=== PATIENT | male | born 1950 | race Caucasian/White ===

== ENCOUNTER → 2018-03-13 | Outpatient (CLI) | payer BC, MEDICARE ==
--- NOTE | 2018-03-13 13:55 | XR ---
EXAMINATION TYPE: XR chest 2V DATE OF EXAM: 03/13/2018 COMPARISON: NONE HISTORY: Follow-up for pneumonia. TECHNIQUE: Frontal and lateral views of the chest are obtained. FINDINGS: Right basilar opacity appears linear oriented and likely relates to atelectasis. Additiona lly there is secondary signs of volume loss as there is right hemidiaphragm elevation again likely fr om atelectasis. Left hemithorax is well aerated. The cardiac silhouette is upper limits of normal. IMPRESSION: Linear right basilar opacity with volume loss of the right hemithorax favored to represe nt atelectasis.
== END | disposition home or self-care (01) ==
LOC: RADXRMAIN 13:22
PROVIDERS: ATTEND Family Medicine
DX: R91.8 Other nonspecific abnormal finding of lung field (principal)
CPT/HCPCS: 71046

== ENCOUNTER 2022-04-19 14:15 | Inpatient (IN) | payer MEDICARE ==
[2022-04-19] MEDS ORDERED: NITROGLYCERIN SL TABS 0.4 MG TAB SUBLINGUAL STA ×3 (15:09→16:37)
[2022-04-19] MEDS ORDERED: ASPIRIN 81 MG PO STA (15:09)
--- NOTE | 2022-04-19 15:14 | ED ---
Chest Pain HPI - General Source: patient, RN notes reviewed Mode of arrival: wheelchair Limitations: no limitations - History of Present Illness MD Complaint: chest pain <Samir Lizama - Last Filed: 04/19/22 16:01> <Jhoan Douglas - Last Filed: 04/19/22 17:09> - General Chief Complaint: Chest Pain Stated Complaint: Chest Pain Time Seen by Provider: 04/19/22 14:26 - History of Present Illness Initial Comments: 71-year-old male with a history of hypertension also history of vein stripping but no prior history of cardiac disease other is a family history and his mother's side who presents with complains of sternal nonradiating chest pain started around 9:00 last evening. His been intermittent anywhere from 4/10-0. He currently states is about 4/10. No shortness breath fevers chills nausea vomiting sweats with it no reproducibility. He points to the left to midsternal chest he states is about the size was fist he does state is dull in nature. No other current complaints or modifying factors patient is a nonsmoker. (Samir Lizama) - Related Data Home Medications Medication Instructions Recorded Confirmed Tamsulosin HCl [Flomax] 0.4 mg PO HS 04/19/22 04/19/22 amLODIPine [Norvasc] 5 mg PO DAILY 04/19/22 04/19/22 hydroCHLOROthiazide [Hydrodiuril] 25 mg PO DAILY 04/19/22 04/19/22 Allergies Allergy/AdvReac Type Severity Reaction Status Date / Time No Known Allergies Allergy Verified 04/19/22 15:26 Review of Systems ROS Other: All systems not noted in ROS Statement are negative. <Samir Lizama - Last Filed: 04/19/22 16:01> ROS Other: All systems not noted in ROS Statement are negative. <Jhoan Douglas - Last Filed: 04/19/22 17:09> ROS Statement: Those systems with pertinent positive or pertinent negative responses have been documented in the HPI. EKG Findings - EKG Results: EKG: interpreted by ERMD, sinus rhythm (EKG read by me sinus rhythm first-degree AV block rate of 78 OH interval 244 QRS duration 169 QT since QTC 423/456 evidence a left exodeviation left bundle-branch block pattern currently no old one for evaluation and comparison.) <Samir Lizama - Last Filed: 04/19/22 16:01> Past Medical History Past Medical History: Hypertension History of Any Multi-Drug Resistant Organisms: None Reported Additional Past Surgical History / Comment(s): VARICOSE VEIN STRIPPING Past Psychological History: No Psychological Hx Reported Smoking Status: Never smoker Past Alcohol Use History: None Reported Past Drug Use History: None Reported <Samir Lizama - Last Filed: 04/19/22 16:01> General Exam Limitations: no limitations General appearance: alert, in no apparent distress Head exam: Present: atraumatic, normocephalic, normal inspection Eye exam: Present: normal appearance, PERRL, EOMI. Absent: scleral icterus, conjunctival injection, periorbital swelling ENT exam: Present: normal exam, mucous membranes moist Neck exam: Present: normal inspection, full ROM, other. Absent: tenderness, meningismus, lymphadenopathy Respiratory exam: Present: normal lung sounds bilaterally. Absent: respiratory distress, wheezes, rales, rhonchi, stridor, chest wall tenderness (Genitourinary bruits) Cardiovascular Exam: Present: regular rate, normal rhythm, normal heart sounds. Absent: systolic murmur, diastolic murmur, rubs, gallop, clicks GI/Abdominal exam: Present: soft, normal bowel sounds. Absent: distended, tenderness, guarding, rebound, rigid Extremities exam: Present: normal inspection, full ROM, normal capillary refill. Absent: tenderness, pedal edema, joint swelling, calf tenderness Back exam: Present: normal inspection Neurological exam: Present: alert, oriented X3, CN II-XII intact Psychiatric exam: Present: normal affect, normal mood Skin exam: Present: warm, dry, intact, normal color. Absent: rash <Samir Lizama - Last Filed: 04/19/22 16:01> - General Exam Comments Initial Comments: This is a well-developed well-nourished awake alert oriented 4 male (Samir Lizama) Course <Samir Lizama - Last Filed: 04/19/22 16:01> Vital Signs 04/19/22 04/19/22 04/19/22 14:36 14:45 15:38 Temperature 97.7 F Pulse Rate 84 94 Pulse Rate [ 84 Acid Mixer ] Respiratory 20 20 Rate Blood Pressure 141/87 133/88 O2 Sat by Pulse 92 L 93 L Oximetry 04/19/22 16:40 Temperature Pulse Rate 80 Pulse Rate [ Acid Mixer ] Respiratory 20 Rate Blood Pressure 130/98 O2 Sat by Pulse 95 Oximetry - Reevaluation(s) Reevaluation #1: 04/19/22 15:30 I did review the EKG it was sent from the primary physician office dated 04/07/22 showing similar configuration to today's EKG (Samir Lizama) Reevaluation #2: 04/19/22 16:01 Reevaluation patient after taking the medication shows no overt change. He still has chest discomfort in the same spot he points again to the left mid to lower costal sternal margin. Patient's d-dimer however is elevated and CT angiogram has been ordered. The patient's care will be endorsed to Dr. Douglas at our shift change. (Samir Lizama) Chest Pain MDM <Jhoan Douglas - Last Filed: 04/19/22 17:09> - [facility] Patient is a 71-year-old male with past medical history remarkable for hypertension who presents emergency Department complaining of chest pain. Patient was signed out to me pending results of laboratory studies and imaging. Patient was already given aspirin, nitroglycerin tablets which did improve his pain as it is resolved at this time when I discuss his workup with him. Patient's d-dimer was elevated and CT angiogram was ordered. Patient does have an elevated troponin as well as 0.2. EKG was evaluated by the prior physician as well as myself and revealed a left bundle branch block which appears chronic. Using scarbossa's criteria, no evidence for significant ST segment findings to suggest MT. An EKG that he obtained from the patient's PCPs office. That EKG is located on the patient's chart. Patient is currently resting comfortably in bed. He was in agreement with the overall plan. Vital signs within acceptable limits. Patient's CT angiogram is interpreted by myself revealed no evidence of pulmonary embolism. Patient does have left-sided 2 pulmonary nodules which I informed him about. No other findings. Bibasal atelectasis present. After the patient. He remains pain-free. He will be started on Nitropaste, as well as a low intensity heparin drip. He was in agreement with this plan. We discussed that I'm concerned for ACS for him and he appears to be have an NSTEMI. He is symptomaticly free at this time. He was in agreement this plan. He already received 324 mg of aspirin. Cardiology was consulted. Echo was ordered. We will trend his troponin. I spoke with the admitting team, mid-level provider Tulio of [facility] who admits for Dr. Khoury who accepted the patient. He was admitted to telemetry bed. (Jhoan Douglas) Disposition <Samir Lizama - Last Filed: 04/19/22 16:01> Time of Disposition: 16:40 <Jhoan Douglas - Last Filed: 04/19/22 17:09> Clinical Impression: Acute non-ST elevation myocardial infarction (NSTEMI), Chest pain, Elevated troponin, History of left bundle branch block, Pulmonary nodule Disposition: ADMITTED IP TO THIS HOSP Condition: Stable Referrals: Slade Khoury MD [Primary Care Provider] - 1-2 days
--- NOTE | 2022-04-19 15:27 | XR ---
EXAMINATION TYPE: XR chest 2V DATE OF EXAM: 04/19/2022 COMPARISON: 03/13/2018 HISTORY: 71-year-old male with chest pain TECHNIQUE: PA and lateral views FINDINGS: Heart borderline enlarged. Rightward patient rotation alters the normal cardia mediastinal contours. Patchy medial left basilar and right basilar opacities. Similar bandlike configuration to the right b ase opacity. Upper lungs appear clear. No pleural effusion. IMPRESSION: 1. Borderline heart size. 2. Chronic bandlike density at the right base, suspected scar. 3. Some patchy atelectasis or developing infiltrate medial left base. Clinically correlate.
[2022-04-19 15:28] LABS: Basophils # (A) 0.1 k/uL (0-0.2); Basophils % (A) 1 %; Eosinophils # (A) 0.8 k/uL (0-0.7); Eosinophils % (A) 8 %; HCT 46.2 % (39.0-53.0); HGB 15.9 gm/dL (13.0-17.5); Lymphocytes # (A) 1.5 k/uL (1.0-4.8); Lymphocytes % (A) 16 %; MCHC 34.5 g/dL (31.0-37.0); MCV 92.7 fL (80.0-100.0); Mean Platelet Volume 9.2; Monocytes # (A) 0.5 k/uL (0-1.0); Monocytes % (A) 5 %; Neutrophils # (A) 6.4 k/uL (1.3-7.7); Neutrophils % (A) 68 %; Platelet Count 183 k/uL (150-450); RBC 4.98 m/uL (4.30-5.90); WBC 9.4 k/uL (3.8-10.6)
[2022-04-19 15:48] LABS: ALT 50 U/L (4-49); AST 49 U/L (17-59); African American GFR (CKD) >90 (>60 ml/min/1.73 sqM); Albumin 4.4 g/dL (3.5-5.0); Alkaline Phosphatase 62 U/L (38-126); Anion Gap 7 mmol/L; Blood Urea Nitrogen 15 mg/dL (9-20); Calcium 9.2 mg/dL (8.4-10.2); Carbon Dioxide 27 mmol/L (22-30); Chloride 105 mmol/L (98-107); Glucose 133 mg/dL (74-99); Lipase 44 U/L (23-300); Non-African American GFR(CKD) >90 (>60 ml/min/1.73 sqM); Potassium 4.2 mmol/L (3.5-5.1); Sodium 139 mmol/L (137-145); Total Bilirubin 1.1 mg/dL (0.2-1.3); Total Protein 7.1 g/dL (6.3-8.2)
[2022-04-19 15:49] LABS: Partial Thromboplastin Time 23.6 sec (22.0-30.0); Prothrombin Time 11.3 sec (9.0-12.0)
[2022-04-19] MEDS ORDERED: HEPARIN SODIUM 1,000 UN/ML (10ML VL) IV ONE ×2 (16:13→16:41)
[2022-04-19] MEDS ORDERED: HEPARIN SODIUM 1,000 UN/ML (10ML VL) IV PRN (16:13)
[2022-04-19] MEDS ORDERED: HEPARIN SOD,PORK IN 0.45% NACL 25,000 UNIT in 0.45% NACL 1 250ML.BAG IV SCH ×2 (16:15→16:45)
--- NOTE | 2022-04-19 16:37 | CT ---
EXAMINATION TYPE: CT angio chest CT DLP: 916.8 mGycm, Automated exposure control for dose reduction was used. DATE OF EXAM: 04/19/2022 4:29 PM COMPARISON: Chest radiograph from same day. CLINICAL INDICATION:Male, 71 years old with history of PE suspected; c/o chest pain TECHNIQUE/CONTRAST: CTA scan of the thorax is performed with IV Contrast, patient injected with 80cc mL of Isovue 370, pu lmonary embolism protocol. MIP images are created and reviewed. FINDINGS: Pulmonary Artery: There is no evidence for a filling defect within the pulmonary vasculature to sugge st acute pulmonary embolism. The pulmonary artery is of normal size. Lungs/Pleura: No evidence of focal consolidation, pleural effusion or pneumothorax. Scattered pulmona ry nodules, examples include Left upper lobe pulmonary nodule measuring 9 mm, left lower lobe pulmona ry nodule measuring 7 mm. Airway: Large airways are patent. Heart: Heart is within normal limits for size. Atherosclerosis of the arterial vasculature. Vasculature: No evidence of aortic aneurysm. Mediastinum: No gross evidence of adenopathy. Musculoskeletal: No acute osseous abnormalities, multilevel disc degeneration changes are seen throug hout the spine. Soft Tissues: Unremarkable. Lower neck: No significant findings. Upper Abdomen: Diffuse low-attenuation to the liver parenchyma. Right adrenal hepatic embolization fr om 14 mm. IMPRESSION: 1. No evidence of pulmonary embolism. 2. Left upper and lower lobe pulmonary nodules measuring up to 9 mm in the upper lobe, short-term fol low-up in 3-6 months is recommended to ensure stability. 3. Elevated right diaphragm with bibasilar atelectasis.
[2022-04-19] MEDS ORDERED: NITROGLYCERIN OINT 1 INCH/GM PACKET TOPICAL STA (16:52)
[2022-04-19] MEDS ORDERED: NALOXONE 0.4 MG/ML 1 ML VIAL IV PRN (16:54)
[2022-04-19] MEDS: TAMSULOSIN 0.4 MG CAP.ER.24H PO SCH (20:57)
[2022-04-19] MEDS: HEPARIN SODIUM 1,000 UN/ML (10ML VL) IV PRN (23:20)
[2022-04-20 05:43] LABS: Basophils # (A) 0.1 k/uL (0-0.2); Basophils % (A) 1 %; Eosinophils # (A) 0.9 k/uL (0-0.7); Eosinophils % (A) 9 %; HCT 44.7 % (39.0-53.0); Lymphocytes # (A) 2.7 k/uL (1.0-4.8); Lymphocytes % (A) 27 %; MCH 31.9 pg (25.0-35.0); MCHC 33.6 g/dL (31.0-37.0); Monocytes # (A) 0.6 k/uL (0-1.0); Monocytes % (A) 6 %; Neutrophils # (A) 5.4 k/uL (1.3-7.7); Neutrophils % (A) 55 %; Platelet Count 177 k/uL (150-450); RBC 4.71 m/uL (4.30-5.90); RDW 13.1 % (11.5-15.5); WBC 9.8 k/uL (3.8-10.6)
[2022-04-20 05:53] LABS: African American GFR (CKD) >90 (>60 ml/min/1.73 sqM); Anion Gap 6 mmol/L; Blood Urea Nitrogen 14 mg/dL (9-20); Calcium 8.8 mg/dL (8.4-10.2); Carbon Dioxide 27 mmol/L (22-30); Chloride 107 mmol/L (98-107); Glucose 113 mg/dL (74-99); Non-African American GFR(CKD) >90 (>60 ml/min/1.73 sqM); Potassium 3.8 mmol/L (3.5-5.1); Sodium 140 mmol/L (137-145)
[2022-04-20 05:56] LABS: INR 1.1 (<1.2); Prothrombin Time 11.4 sec (9.0-12.0)
[2022-04-20] MEDS: HEPARIN SODIUM 1,000 UN/ML (10ML VL) IV PRN (06:16)
[2022-04-20] MEDS ORDERED: HEPARIN SODIUM,PORCINE 2,500 UNIT in SODIUM CHLORIDE 0.9% 250 ML IRRIGATION PRN (07:00)
[2022-04-20] MEDS ORDERED: HEPARIN SODIUM,PORCINE 10,000 UNIT in SODIUM CHLORIDE 0.9% 1,000 ML IRRIGATION PRN (07:00)
[2022-04-20] MEDS ORDERED: NITROGLYCERIN OINT 1 INCH/GM PACKET TOPICAL SCH (08:00)
[2022-04-20] MEDS ORDERED: METOPROLOL TARTRATE 25 MG TAB PO SCH (09:00)
[2022-04-20] MEDS ORDERED: amLODIPine 5 MG TAB PO SCH (09:00)
[2022-04-20] MEDS ORDERED: ASPIRIN 81 MG PO SCH (09:00)
[2022-04-20] MEDS ORDERED: ATORVASTATIN 80 MG TAB PO STA (09:01)
[2022-04-20] MEDS ORDERED: ASPIRIN 325 MG TAB PO STA (09:01)
[2022-04-20] MEDS ORDERED: NITROGLYCERIN SL TABS 0.4 MG TAB SUBLINGUAL PRN (09:01)
[2022-04-20] MEDS ORDERED: ALPRAZolam 0.5 MG TAB PO PRN (09:01)
[2022-04-20] MEDS ORDERED: ALPRAZolam 0.25 MG TAB PO PRN (09:01)
[2022-04-20] MEDS: METOPROLOL TARTRATE 50 MG TAB PO SCH ×2 (09:23→20:41)
[2022-04-20] MEDS: hydroCHLOROthiazide 25 MG TAB PO SCH (09:24)
--- NOTE | 2022-04-20 10:01 | P.CRDCN ---
History of Present Illness Consult date: 04/20/22 History of present illness: HISTORY OF PRESENT ILLNESS: This is a 71-year-old male with a past medical history significant for hypertension. 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 We have been asked to see the patient in consultation for NSTEMI. Patient examined at the bedside. Patient states two days ago he began to have heartburn after he ate dinner. He states he took some Tums with relief. The following day he was feeling better so he went to the basement to move some boxes and began to have chest pain. He presented to the ER for further evaluation. Patient was started on IV heparin. He currently denies chest pain or pressure. He denies SOB. Vital signs are stable. * EKG reveals sinus mechanism with left bundle branch block. No previous EKG for comparison * Chest xray borderline heart size. Chronic bandlike density at the right base, suspected scar. Some patchy atelectasis or developing infiltrate medial left base. * Chest CTA: Negative for PE * Laboratory data: WBC 9.8. Hemoglobin 15.0. Platelet count 177. D-dimer 2. 51. Sodium 140. Potassium 3.8. BUN 14. Creatinine 0.72. ProBNP 52. Troponin 0.294. 0.762. 2.580. * Current home cardiac medications include hydrochlorothiazide 25 mg daily and Norvasc 5 mg daily REVIEW OF SYSTEMS: At the time of my exam: CONSTITUTIONAL: Denies fever or chills. HEENT: Denies blurred vision, vision changes, or eye pain. Denies hemoptysis CARDIOVASCULAR: Denies chest pain. Denies orthopnea. Denies PND. Denies palpitations RESPIRATORY: Denies shortness of breath. GASTROINTESTINAL: Denies abdominal pain. Denies nausea or vomiting. HEMATOLOGIC: Denies bleeding disorders. GENITOURINARY: Denies any blood in urine. SKIN: Denies pruitis. Denies rash. PHYSICAL EXAM: VITAL SIGNS: Reviewed. GENERAL: Well-developed in no acute distress. HEENT: Head is normocephalic. Pupils are equal, round. Sclerae anicteric. Mucous membranes of the mouth are moist. Neck supple. No JVD or thyromegaly LUNGS: Respirations even and unlabored. Lungs essentially clear to auscultation bilaterally. HEART: Regular rate and rhythm. S1 and S2 heard. ABDOMEN: Soft. Nondistended. Nontender. EXTREMITIES: Normal range of motion. No clubbing or cyanosis. Peripheral pulses intact. No lower extremity edema NEUROLOGIC: Awake and alert. Oriented x 3. ASSESSMENT: Non-STEMI Hypertension PLAN: Obtain 2D echo to assess cardiac structure and function Continue IV heparin Check lipid panel Begin aspirin, lipitor, metoprolol, and nitro paste Patient to undergo cardiac cath today with Dr. Rodríguez Further recommendations pending patient course Nurse practitioner note has been reviewed by physician. Signing provider agrees with the documented findings, assessment, and plan of care. Past Medical History Past Medical History: Hypertension History of Any Multi-Drug Resistant Organisms: None Reported Additional Past Surgical History / Comment(s): VARICOSE VEIN STRIPPING Past Psychological History: No Psychological Hx Reported Smoking Status: Never smoker Past Alcohol Use History: None Reported Past Drug Use History: None Reported Medications and Allergies Home Medications Medication Instructions Recorded Confirmed Type Tamsulosin HCl [Flomax] 0.4 mg PO HS 04/19/22 04/19/22 History amLODIPine [Norvasc] 5 mg PO DAILY 04/19/22 04/19/22 History hydroCHLOROthiazide [Hydrodiuril] 25 mg PO DAILY 04/19/22 04/19/22 History Allergies Allergy/AdvReac Type Severity Reaction Status Date / Time No Known Allergies Allergy Verified 04/19/22 15:26 Physical Exam Vitals: Vital Signs Temp Pulse Pulse Pulse Resp BP BP 04/20/22 07:47 04/20/22 03:40 98.0 F 84 18 132/70 04/19/22 23:00 97.9 F 81 16 149/85 04/19/22 19:44 97.9 F 72 16 140/80 04/19/22 18:58 98.0 F 77 16 140/70 04/19/22 18:43 97.6 F 73 19 136/85 04/19/22 17:29 97.8 F 72 20 130/81 04/19/22 16:40 80 20 130/98 04/19/22 15:38 94 20 133/88 04/19/22 14:45 84 04/19/22 14:36 97.7 F 84 20 141/87 Pulse Ox 04/20/22 07:47 95 04/20/22 03:40 93 L 04/19/22 23:00 93 L 04/19/22 19:44 92 L 04/19/22 18:58 97 04/19/22 18:43 96 04/19/22 17:29 95 04/19/22 16:40 95 04/19/22 15:38 93 L 04/19/22 14:45 04/19/22 14:36 92 L Intake and Output 04/19/22 04/20/22 04/20/22 22:59 06:59 14:59 Intake Total 0 158.965 Balance 0 158.965 Intake: Intake, IV Titration 158.965 Amount Heparin Sod,Pork in 0.45% 158.965 NaCl 25,000 unit In 0.45 % NaCl 1 250ml.bag @ 7. 349 UNITS/KG/HR 10 mls/hr IV .Q24H [facility] Rx#: [id number] Oral 0 Other: Voiding Method Toilet # Voids 0 2 Weight 136.078 kg Results 04/20/22 05:24 04/20/22 05:24 Cardiac Enzymes 04/19/22 04/19/22 04/19/22 Range/Units 15:11 15:11 18:41 AST 49 (17-59) U/L Troponin I 0.294 H* 0.762 H* (0.000-0.034) ng/mL 04/19/22 Range/Units 21:47 AST (17-59) U/L Troponin I 2.580 H* (0.000-0.034) ng/mL Coagulation 04/19/22 04/19/22 04/20/22 Range/Units 15:11 21:47 05:24 PT 11.3 11.4 (9.0-12.0) sec APTT 23.6 28.2 (22.0-30.0) sec 04/20/22 Range/Units 05:24 PT (9.0-12.0) sec APTT 32.2 H (22.0-30.0) sec CBC 04/19/22 04/20/22 Range/Units 15:11 05:24 WBC 9.4 9.8 (3.8-10.6) k/uL RBC 4.98 4.71 (4.30-5.90) m/uL Hgb 15.9 15.0 (13.0-17.5) gm/dL Hct 46.2 44.7 (39.0-53.0) % Plt Count 183 177 (150-450) k/uL Comprehensive Metabolic Panel 04/19/22 04/20/22 Range/Units 15:11 05:24 Sodium 139 140 (137-145) mmol/L Potassium 4.2 3.8 (3.5-5.1) mmol/L Chloride 105 107 (98-107) mmol/L Carbon Dioxide 27 27 (22-30) mmol/L BUN 15 14 (9-20) mg/dL Creatinine 0.75 0.72 (0.66-1.25) mg/dL Glucose 133 H 113 H (74-99) mg/dL Calcium 9.2 8.8 (8.4-10.2) mg/dL AST 49 (17-59) U/L ALT 50 H (4-49) U/L Alkaline Phosphatase 62 (38-126) U/L Total Protein 7.1 (6.3-8.2) g/dL Albumin 4.4 (3.5-5.0) g/dL Current Medications Generic Name Dose Route Start Last Admin Trade Name Freq PRN Reason Stop Dose Admin Amlodipine Besylate 5 mg 04/20/22 09:00 Amlodipine 5 Mg Tab PO DAILY [facility] Aspirin 81 mg 04/20/22 09:00 Aspirin 81 Mg PO DAILY [facility] Atorvastatin Calcium 80 mg 04/20/22 21:00 Atorvastatin 80 Mg Tab PO HS [facility] Heparin Sodium (Porcine) 0 unit 04/19/22 16:41 04/20/22 06:16 Heparin Sodium 1,000 Un/Ml (10ml Vl) IV 4,000 unit PER PROTOCOL PRN Administration Low PTT Protocol Hydrochlorothiazide 25 mg 04/20/22 09:00 Hydrochlorothiazide 25 Mg Tab PO DAILY [facility] Heparin Sodium/Sodium Chloride 250 mls @ 10 mls/hr 04/19/22 16:45 04/20/22 06:15 25,000 unit/ Sodium Chloride IV 13.349 units/kg/hr .Q24H [facility] 18.165 mls/hr Titration Protocol 7.349 UNITS/KG/HR Metoprolol Tartrate 25 mg 04/20/22 09:00 Metoprolol Tartrate 25 Mg Tab PO BID [facility] Naloxone HCl 0.2 mg 04/19/22 16:54 Naloxone 0.4 Mg/Ml 1 Ml Vial IV Q2M PRN Opioid Reversal Nitroglycerin 0.5 inch 04/20/22 08:00 Nitroglycerin Oint 1 Inch/Gm Packet TOPICAL Q8HR [facility] Tamsulosin HCl 0.4 mg 04/19/22 21:00 04/19/22 20:57 Tamsulosin 0.4 Mg Cap.Er.24h PO 0.4 mg HS [facility] Administration Intake and Output 04/19/22 04/20/22 04/20/22 22:59 06:59 14:59 Intake Total 0 158.965 Balance 0 158.965 Intake: Intake, IV Titration 158.965 Amount Heparin Sod,Pork in 0.45% 158.965 NaCl 25,000 unit In 0.45 % NaCl 1 250ml.bag @ 7. 349 UNITS/KG/HR 10 mls/hr IV .Q24H [facility] Rx#: [id number] Oral 0 Other: Voiding Method Toilet # Voids 0 2 Weight 136.078 kg 04/20/22 05:24 04/20/22 05:24
[2022-04-20] MEDS ORDERED: MIDAZOLAM 2 MG/2 ML VIAL IV ONE (10:27)
[2022-04-20] MEDS ORDERED: LIDOCAINE 1% INJ 10MG/ML (30 ML VIAL-PF) SQ ONE (10:29)
[2022-04-20] MEDS ORDERED: VERAPAMIL SYRINGE (5 MG/10 ML) INTRAARTER ONE (10:35)
[2022-04-20] MEDS ORDERED: HEPARIN SODIUM 1,000 UN/ML (10ML VL) IV ONE (10:55)
[2022-04-20] MEDS ORDERED: AMIODARONE 360 MG in DEXTROSE 5% IN WATER 200 ML IV ONE ×2 (11:01)
[2022-04-20] MEDS ORDERED: IV FLUID CONTINUATION 700 ML IV ONE (11:09)
[2022-04-20] MEDS ORDERED: TICAGRELOR 90 MG TAB PO ONE (11:09)
[2022-04-20] MEDS ORDERED: AMIODARONE 50 MG/ML 3 ML VIAL IV ONE (11:10)
[2022-04-20] MEDS ORDERED: DEXTROSE 5% IN WATER 50 ML BAG ONE (11:11)
[2022-04-20] MEDS ORDERED: IOPAMIDOL-370 100ML BTL INJ ONE ×2 (11:11→11:32)
--- NOTE | 2022-04-20 11:25 | CA ---
Transthoracic Echo Report Name: Del Garza Age: 71 Gender: M : 1950 Exam Date: 04/20/2022 08:02 Exam Location: [facility] Ht (in): 72 Wt (lb): 300 Ordering Physician: Heber eH MD Attending/Referring Phys: Technical Support Engineer Anat Milligan RDCS Procedure CPT: Indications: nstemi Cardiac Hx: Technical Quality: Very technically difficult study Contrast 1: Lumason Total Dose (mL): 4 Contrast 2: Total Dose (mL): MEASUREMENTS (Male / Female) Normal Values 2D ECHO LV Diastolic Diameter PLAX 4.8 cm 4.2 - 5.9 / 3.9 - 5.3 cm LV Systolic Diameter PLAX 4.0 cm IVS Diastolic Thickness 1.8 cm 0.6 - 1.0 / 0.6 - 0.9 cm LVPW Diastolic Thickness 2.0 cm 0.6 - 1.0 / 0.6 - 0.9 cm LV Relative Wall Thickness 0.8 RV Internal Dim ED PLAX 3.0 cm FINDINGS Left Ventricle Severely increased septal wall thickness. Left ventricular ejection fraction is estimated at 30-35%. Anteroseptal, distal anterior and apical severe hypokinesis Right Ventricle Normal right ventricular size and function. Right Atrium Normal right atrial size. Left Atrium Left atrial dilatation. Mitral Valve Structurally normal mitral valve. Mild mitral regurgitation. Thickened mitral valve leaflets Aortic Valve Aortic valve sclerosis. Tricuspid Valve Structurally normal tricuspid valve. Mild tricuspid regurgitation. Pulmonic Valve Pulmonic valve not well visualized. Pericardium Normal pericardium. Aorta Normal size aortic root and proximal ascending aorta. CONCLUSIONS Lumason ECHO contrast used for improved visualization of the endocardial borders (inadequate visualization of two or more contiguous segments). 1. Severely impaired left ventricular systolic function with segmental wall motion abnormality 2. Mild mitral and tricuspid regurgitation Previewed by: Dr. Tuan Farmer MD (Electronically Signed) Final Date: 20 April 2022 11:24
[2022-04-20] MEDS ORDERED: METOPROLOL TARTRATE 5 MG/5 ML VIAL IVP ONE (11:34)
[2022-04-20] MEDS ORDERED: RX INFO: IV CONTRAST WAS GIVEN 1 EACH MISC MISCELLANE PRN (11:39)
[2022-04-20 11:40] LABS: Chol/HDL Ratio 5.26 Ratio; LDL Cholesterol,Calculated 114.2 mg/dL (0.0-131.0)
--- NOTE | 2022-04-20 14:35 | P.HPIM ---
History of Present Illness H&P Date: 04/20/22 This is a 71-year-old male who was recently presented to the emergency department with chest pain that started in the evening and reported as being left to midsternal chest pain and nonradiating that had been intermittent and dull in nature. Patient reports to having a past medical family history of cardiac problems although he denies any cardiac problems himself. Patient follows with Dr. Khoury in the outpatient setting with a past medical history of hypertension and takes blood pressure medication for this. Chest x-ray showed borderline heart size with chronic bandlike density at the right base suspected a scar and some patchy atelectasis or developing infiltrate at the medial left base. Patient did have an elevated d-dimer in the ER of 2.51 and underwent CTA which was negative for PE although there were some left upper and lower lobe pulmonary nodules measuring up to 9 mm in the upper lobe recommending short-term follow-up in 3-6 months along with elevated right diaphragm with by basilar atelectasis. Cardiology was placed on consult and patient also had a 2-D echo done showing a severely impaired left ventricular systolic function with segmental wall motion abnormality with mild mitral tricuspid regurgitation and EF approximated at 30-35%. Cardiology following and patient scheduled for cardiac cath today. Troponins were also done and positive at 0.294 been elevating at 0.762 and last night was 2.580. Patient was continued on telemetry monitoring started on IV heparin and nothing by mouth at midnight for cardiology consult in the a.m. Review Of Systems: Constitutional: No fever, no chills, no night sweats. No weight change. No weakness, fatigue or lethargy. No daytime sleepiness. EENT: No headache. No blurred vision or double vision, no loss of vision. No loss of Hearing, no ringing in the ears, no dizziness. No nasal drainage or congestion. No epistaxis. No sore throat. Lungs: Reported some shortness of breath, no cough, no sputum production. No wheezing. Cardiovascular: Reports chest pain, no lower extremity edema. No palpitations. No paroxysmal nocturnal dyspnea. No orthopnea. No lightheadedness or dizziness. No syncopal episodes. Abdominal: No abdominal pain. No nausea, vomiting. No diarrhea. No constipation. No bloody or tarry stools.. No loss of appetite. Genitourinary: No dysuria, increased frequency, urgency. No urinary retention. Musculoskeletal: No myalgias. No muscle weakness, no gait dysfunction, no frequent falls. No back pain. No neck pain. Integumentary: No wounds, no lesions. No rash or pruritus. No unusual bruising. No change in hair or nails. Neurologic: No aphasia. No facial droop. No change in mentation. No head injury. No headache. No paralysis. No paresthesia. Psychiatric: No depression. No anxiety. No mood swings. Endocrine: No abnormal blood sugars. No weight change. No excessive sweating or thirst. No cold intolerance. PHYSICAL EXAMINATION: GENERAL: The patient is alert and oriented x4, Well developed, well nourished. Obese HEENT: Pupils are round and equally reacting to light. EOMI. no scleral icterus. No conjunctival pallor. Normocephalic, atraumatic. No pharyngeal erythema. No thyromegaly. CARDIOVASCULAR: S1 and S2 muffled PULMONARY: diminished breath sounds bilaterally with no wheezing or rhonchi noted. ABDOMEN: soft. Nontender on exam. obese. non-distended, normoactive bowel sounds. No palpable organomegaly. MUSCULOSKELETAL: No joint swelling or deformity. EXTREMITIES: No cyanosis, clubbing, or pedal edema. NEUROLOGICAL: Gross neurological examination did not reveal any focal deficits. SKIN: No rashes. Assessment: Chest pain, NSTEMI Elevated d-dimer with no evidence of PE on CTA possibly secondary to NSTEMI Hypertension Obesity with a BMI of 39.6 GI prophylaxis DVT prophylaxis Full code Plan: Recommend to continue with current medications and management cardiology following. Patient was maintained on IV heparin for elevated troponins and underwent cardiac catheterization today with stenting patient is currently on bed rest and underwent a right radial approach. Cardiology following closely patient is maintained on IV amiodarone and other home medications have been resumed. Patient is being started on Brilinta by cardiology. Patient will continue on telemetry monitoring and closely observing overnight and will follow-up with repeat labs in a.m. Prognosis is guarded. The impression and plan of care has been dictated by Marjorie Galan, nurse practitioner as directed. Dr. Riya ARTEAGA I have performed a history and examination and MDM of this patient, discussed the same with the dictator, and agree with the dictator's assessment and plan as written ,documented as a scribe. Based on total visit time, I have performed more than 50% of the visit. Any additional findings or plans will be noted. Past Medical History Past Medical History: Hypertension History of Any Multi-Drug Resistant Organisms: None Reported Additional Past Surgical History / Comment(s): VARICOSE VEIN STRIPPING Past Psychological History: No Psychological Hx Reported Smoking Status: Never smoker Past Alcohol Use History: None Reported Past Drug Use History: None Reported Medications and Allergies Home Medications Medication Instructions Recorded Confirmed Type Tamsulosin HCl [Flomax] 0.4 mg PO HS 04/19/22 04/19/22 History amLODIPine [Norvasc] 5 mg PO DAILY 04/19/22 04/19/22 History hydroCHLOROthiazide [Hydrodiuril] 25 mg PO DAILY 04/19/22 04/19/22 History Allergies Allergy/AdvReac Type Severity Reaction Status Date / Time No Known Allergies Allergy Verified 04/19/22 15:26 Physical Exam Vitals: Vital Signs Temp Pulse Pulse Pulse Resp BP BP 04/20/22 07:47 04/20/22 03:40 98.0 F 84 18 132/70 04/19/22 23:00 97.9 F 81 16 149/85 04/19/22 19:44 97.9 F 72 16 140/80 04/19/22 18:58 98.0 F 77 16 140/70 04/19/22 18:43 97.6 F 73 19 136/85 04/19/22 17:29 97.8 F 72 20 130/81 04/19/22 16:40 80 20 130/98 04/19/22 15:38 94 20 133/88 04/19/22 14:45 84 04/19/22 14:36 97.7 F 84 20 141/87 Pulse Ox 04/20/22 07:47 95 04/20/22 03:40 93 L 04/19/22 23:00 93 L 04/19/22 19:44 92 L 04/19/22 18:58 97 04/19/22 18:43 96 04/19/22 17:29 95 04/19/22 16:40 95 04/19/22 15:38 93 L 04/19/22 14:45 04/19/22 14:36 92 L Intake and Output 04/19/22 04/20/22 04/20/22 22:59 06:59 14:59 Intake Total 0 158.965 Balance 0 158.965 Intake: Intake, IV Titration 158.965 Amount Heparin Sod,Pork in 0.45% 158.965 NaCl 25,000 unit In 0.45 % NaCl 1 250ml.bag @ 7. 349 UNITS/KG/HR 10 mls/hr IV .Q24H [facility] Rx#: [id number] Oral 0 Other: Voiding Method Toilet # Voids 0 2 Weight 136.078 kg Results CBC & Chem 7: 04/20/22 05:24 04/20/22 05:24 Labs: Abnormal Lab Results - Last 24 Hours (Table) 04/19/22 04/19/22 04/19/22 Range/Units 15:11 15:11 15:11 Eosinophils # 0.8 H (0-0.7) k/uL APTT (22.0-30.0) sec D-Dimer 2.51 H (<0.60) mg/L FEU Glucose 133 H (74-99) mg/dL ALT 50 H (4-49) U/L Troponin I (0.000-0.034) ng/mL 04/19/22 04/19/22 04/19/22 Range/Units 15:11 18:41 21:47 Eosinophils # (0-0.7) k/uL APTT (22.0-30.0) sec D-Dimer (<0.60) mg/L FEU Glucose (74-99) mg/dL ALT (4-49) U/L Troponin I 0.294 H* 0.762 H* 2.580 H* (0.000-0.034) ng/mL 04/20/22 04/20/22 04/20/22 Range/Units 05:24 05:24 05:24 Eosinophils # 0.9 H (0-0.7) k/uL APTT 32.2 H (22.0-30.0) sec D-Dimer (<0.60) mg/L FEU Glucose 113 H (74-99) mg/dL ALT (4-49) U/L Troponin I (0.000-0.034) ng/mL Thrombosis Risk Factor Assmnt - DVT/VTE Prophylaxis DVT/VTE Prophylaxis: Pharmacologic Prophylaxis ordered - Choose All That Apply Each Factor Represents 1 point: Obesity (BMI >25) Each Risk Factor Represents 2 Points: Age 61-74 years Thrombosis Risk Factor Assessment Total Risk Factor Score: 3 Thrombosis Risk Factor Assessment Level: Moderate Risk Assessment and Plan Time with Patient: Greater than 30
[2022-04-20] MEDS: SODIUM CHLORIDE 0.9% 1,000 ML in EMPTY BAG 1 BAG IV SCH ×2 (15:55→15:56)
[2022-04-20] MEDS: TAMSULOSIN 0.4 MG CAP.ER.24H PO SCH (20:40)
[2022-04-20] MEDS: ATORVASTATIN 80 MG TAB PO SCH (20:40)
[2022-04-20] MEDS: TICAGRELOR 90 MG TAB PO SCH (20:41)
[2022-04-20] MEDS ORDERED: LOSARTAN 25 MG TAB PO SCH (21:00)
--- NOTE | 2022-04-20 21:02 | CC ---
CARDIAC CATHETERIZATION REPORT PROCEDURE PERFORMED: 1. Left heart catheterization and coronary angiography. 2. Percutaneous transluminal coronary angioplasty and stenting of proximal circumflex and second obtuse marginal branch of circumflex with drug-eluting stents. PERFORMED BY: Dr. Karen Rodríguez. Moderate conscious sedation time was 60 minutes. The patient was administered Versed. Oxygen saturation, hemodynamics, and EKG were monitored closely. CLINICAL INFORMATION: Mr. Del Garza is a 71-year-old obese gentleman with hypertension and benign prostatic hypertrophy, came into the hospital with 2 days of chest discomfort finally culminating in persistent pain. He had a troponin elevation of up to 2.5, suggestive of a [id number] [place]. He had a left bundle, EKG was inconclusive. He was reasonably stable hemodynamically, but then developed atrial tachycardia. I recommended cardiac catheterization after due discussion with the patient. I also spoke to his by phone. PROCEDURE NOTE: Under local anesthesia and strict aseptic precautions, a 6-Tajik introducer was placed in the right radial artery. Using a 3.5 left and a 4.0 right catheters, I performed coronary angiography and also checked LV pressures, but did not do an LV gram. Right catheter was used to check the pressures. Following the procedure, I went ahead and performed PCI of the proximal circumflex and second obtuse marginal branch with 2 drug- eluting stents with excellent result. After this, the sheath was taken out, and TR band was applied as per protocol. Saturation in the fingers of the right hand was 92%. The patient tolerated the procedure well without complications. CARDIAC CATHETERIZATION FINDINGS: The left ventricular end-diastolic pressure was about 10 to 12 mmHg without any gradient across aortic valve. CORONARY ANGIOGRAPHY FINDINGS: RIGHT CORONARY ARTERY: This is a dominant vessel, large in caliber, has multiple diffuse areas of narrowing of about 30% to 40%, but distally bifurcates into PDA and PLV, both of which also have minor irregularities, but all of these are less than 50%. RCA is dominant, has a vertical takeoff, supplies a sizable amount of myocardium. No critical lesion, but moderate lesions of about 40% to 50% or so. LEFT MAIN CORONARY ARTERY: Short, patent, disease-free vessel that bifurcates into LAD and circumflex. LEFT ANTERIOR DESCENDING CORONARY ARTERY: Good-caliber vessel, gives off a good-sized diagonal branch that has a mid lesion of about 70%, fair caliber. Then, LAD has multiple areas of narrowing of 30% to 40%, but no critical disease, gives off several septal and diagonal branches and runs to the apex supplying a sizable amount of myocardium. LAD has moderate diffuse disease. Diagonal has a 70% lesion, fair-caliber diagonal. No other significant disease in LAD. LEFT POSTERIOR CIRCUMFLEX CORONARY ARTERY: Technically, nondominant vessel, yet of good caliber. Proximal circumflex has eccentric 75% narrowing. It then gives off a first obtuse marginal and then a second obtuse marginal. Second obtuse marginal is subtotally occluded with a 95% stenosis and sluggish flow. This seems to be the culprit lesion. The continuation of circumflex also has some diffuse disease in it. Circumflex, therefore, has proximal 70% and then second obtuse marginal 95% lesion with sluggish flow. Left ventriculogram was not performed. FINAL IMPRESSION: This patient has a right-dominant system, diffuse disease of less than 50% in the dominant right coronary artery and branches. Circumflex proximally, nondominant, has a 75% lesion, and second obtuse marginal has a 95% lesion. Left anterior descending has 30% to 50% lesion diffusely, and diagonal has a 70% lesion. Filling pressures are normal. No gradient across aortic valve. RECOMMENDATIONS: I recommended PCI of circumflex and proceeded to perform this in the same setting. PCI PROCEDURE DETAILS: I used a JL4 guide catheter and a Runthrough wire. The wire was kept at the distal aspect of the second obtuse marginal. The second obtuse marginal was pre-dilated, and I used a 15 mm long, 2.5 NC Trek to pre-dilate the lesion. I then deployed an 18 mm long, 2.75-caliber Xience stent. Excellent angiographic result was achieved. The patient had chest pain, but EKG remained inconclusive. The patient had a run of atrial tachycardia. I gave him amiodarone bolus and drip. He converted to sinus rhythm, and I then gave him 2.5 mg of Lopressor IV push. The patient's ACT was 330, subsequently was 246. He received 180 mg of Brilinta. I then turned my attention to the proximal circumflex. Pre-dilatation was performed with a 2.75 balloon of the previous stent. I then deployed a 3.5-caliber, 15 mm long Xience stent in the proximal circumflex at 14 atmospheres. The patient had chest pain. No EKG changes. Excellent angiographic result was achieved. Excellent angiographic result without complication was achieved. The proximal circumflex and second obtuse marginal were dilated with drug-eluting stents. Excellent result. No complication. Details were discussed with the patient and . I expect he will be discharged tomorrow if he remains stable. MMODL / IJN: [id number] /
[2022-04-21] MEDS: SODIUM CHLORIDE 0.9% 1,000 ML in EMPTY BAG 1 BAG IV SCH ×3 (00:57→23:19)
[2022-04-21] MEDS: SODIUM CHLORIDE 0.9% 1,000 ML IV SCH ×2 (00:57→03:12)
[2022-04-21 08:41] LABS: Basophils # (A) 0.1 k/uL (0-0.2); Basophils % (A) 1 %; Eosinophils # (A) 0.6 k/uL (0-0.7); Eosinophils % (A) 7 %; HCT 46.1 % (39.0-53.0); HGB 15.5 gm/dL (13.0-17.5); Lymphocytes # (A) 1.8 k/uL (1.0-4.8); Lymphocytes % (A) 21 %; MCH 31.6 pg (25.0-35.0); MCHC 33.5 g/dL (31.0-37.0); MCV 94.2 fL (80.0-100.0); Monocytes # (A) 0.5 k/uL (0-1.0); Monocytes % (A) 6 %; Neutrophils # (A) 5.4 k/uL (1.3-7.7); Neutrophils % (A) 64 %; Platelet Count 200 k/uL (150-450); RDW 13.1 % (11.5-15.5); WBC 8.4 k/uL (3.8-10.6)
[2022-04-21 09:04] LABS: African American GFR (CKD) >90 (>60 ml/min/1.73 sqM); Anion Gap 8 mmol/L; Blood Urea Nitrogen 13 mg/dL (9-20); Calcium 8.8 mg/dL (8.4-10.2); Carbon Dioxide 24 mmol/L (22-30); Chloride 107 mmol/L (98-107); Glucose 206 mg/dL (74-99); Non-African American GFR(CKD) >90 (>60 ml/min/1.73 sqM); Potassium 3.7 mmol/L (3.5-5.1); Sodium 139 mmol/L (137-145)
[2022-04-21] MEDS: LOSARTAN 50 MG TAB PO SCH (09:11)
[2022-04-21] MEDS: ASPIRIN 81 MG PO SCH (09:11)
[2022-04-21] MEDS: METOPROLOL TARTRATE 50 MG TAB PO SCH ×2 (09:11→20:29)
[2022-04-21] MEDS: SPIRONOLACTONE 25 MG TAB PO SCH (09:11)
[2022-04-21] MEDS: TICAGRELOR 90 MG TAB PO SCH ×2 (09:11→20:29)
[2022-04-21] MEDS: hydroCHLOROthiazide 25 MG TAB PO SCH (09:11)
--- NOTE | 2022-04-21 10:38 | P.PN ---
Subjective Progress Note Date: 04/21/22 HISTORY OF PRESENT ILLNESS: This is a 71-year-old male with a past medical history significant for hypertension. 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 We have been asked to see the patient in consultation for NSTEMI. Patient examined at the bedside. Patient states two days ago he began to have heartburn after he ate dinner. He states he took some Tums with relief. The following day he was feeling better so he went to the basement to move some boxes and began to have chest pain. He presented to the ER for further evaluation. Patient was started on IV heparin. He currently denies chest pain or pressure. He denies SOB. Vital signs are stable. * EKG reveals sinus mechanism with left bundle branch block. No previous EKG for comparison * Chest xray borderline heart size. Chronic bandlike density at the right base, suspected scar. Some patchy atelectasis or developing infiltrate medial left base. * Chest CTA: Negative for PE * Laboratory data: WBC 9.8. Hemoglobin 15.0. Platelet count 177. D-dimer 2.51. Sodium 140. Potassium 3.8. BUN 14. Creatinine 0.72. ProBNP 52. Troponin 0.294. 0.762. 2.580. * Current home cardiac medications include hydrochlorothiazide 25 mg daily and Norvasc 5 mg daily 04/21/2022 Patient examined this morning at the bedside. Patient is s/p cardiac cath with PCI of the proximal circumflex and second obtuse marginal branch. Echo reveals EF 30-35%. Patient denies any chest pain or pressure. Denies SOB. Vital signs are stable. Slight oozing this morning from radial site. PHYSICAL EXAM: VITAL SIGNS: Reviewed. GENERAL: Well-developed in no acute distress. HEENT: Head is normocephalic. Pupils are equal, round. Sclerae anicteric. Mucous membranes of the mouth are moist. Neck supple. No JVD or thyromegaly LUNGS: Respirations even and unlabored. Lungs essentially clear to auscultation bilaterally. HEART: Regular rate and rhythm. S1 and S2 heard. ABDOMEN: Soft. Nondistended. Nontender. EXTREMITIES: Normal range of motion. No clubbing or cyanosis. Peripheral pulses intact. No lower extremity edema NEUROLOGIC: Awake and alert. Oriented x 3. ASSESSMENT: Non-STEMI, s/p cardiac catheterization with PCI to the proximal circumflex and second obtuse marginal branch Coronary artery disease Ischemic cardiomyopathy Hypertension PLAN: Discontinue Norvasc Increase losartan to 50 mg daily Add Aldactone 12.5 mg daily Continue aspirin, brilinta, lipitor, and metoprolol Continue to monitor for an additional 24 hours Anticipate discharge home tomorrow Nurse practitioner note has been reviewed by physician. Signing provider agrees with the documented findings, assessment, and plan of care. Objective - Vital Signs Vital signs: Vital Signs Temp 97.8 F 04/21/22 03:13 Pulse 69 04/21/22 03:13 Resp 16 04/21/22 03:13 BP 133/69 04/21/22 03:13 Pulse Ox 92 L 04/21/22 03:13 FiO2 Intake & Output 04/20/22 04/21/22 04/21/22 18:59 06:59 18:59 Intake Total 387.036 Balance 387.036 Intake: IV 210 Intake, IV Titration 59.036 Amount Heparin Sod,Pork in 0.45% 59.036 NaCl 25,000 unit In 0.45 % NaCl 1 250ml.bag @ 7. 349 UNITS/KG/HR 10 mls/hr IV .Q24H [facility] Rx#: [id number] Oral 118 Other: Voiding Method Toilet Toilet # Voids 2 2 - Labs CBC & Chem 7: 04/21/22 08:13 04/21/22 08:13 Labs: Abnormal Lab Results - Last 24 Hours (Table) 04/20/22 04/21/22 04/21/22 Range/Units 05:24 08:13 08:13 Glucose 206 H (74-99) mg/dL Troponin I 2.280 H* (0.000-0.034) ng/mL Triglycerides 154.00 H (0.00-149.00) mg/dL HDL Cholesterol 34.00 L (40.00-60.00) mg/dL
[2022-04-21] MEDS: ATORVASTATIN 80 MG TAB PO SCH (20:29)
[2022-04-21] MEDS: TAMSULOSIN 0.4 MG CAP.ER.24H PO SCH (20:29)
[2022-04-22] MEDS: SODIUM CHLORIDE 0.9% 1,000 ML in EMPTY BAG 1 BAG IV SCH (02:44)
--- NOTE | 2022-04-22 06:57 | P.PN ---
Subjective Progress Note Date: 04/21/22 This is a 71-year-old male who was recently presented to the emergency department with chest pain that started in the evening and reported as being left to midsternal chest pain and nonradiating that had been intermittent and dull in nature. Patient reports to having a past medical family history of ca rdiac problems although he denies any cardiac problems himself. Patient follows with Dr. Khoury in the outpatient setting with a past medical history of hypertension and takes blood pressure medication for this. Chest x-ray showed borderline heart size with chronic bandlike density at the right base suspected a scar and some patchy atelectasis or developing infiltrate at the medial left base. Patient did have an elevated d-dimer in the ER of 2.51 and underwent CTA which was negative for PE although there were some left upper and lower lobe pulmonary nodules measuring up to 9 mm in the upper lobe recommending short-term follow-up in 3-6 months along with elevated right diaphragm with by basilar atelectasis. Cardiology was placed on consult and patient also had a 2-D echo done showing a severely impaired left ventricular systolic function with segmental wall motion abnormality with mild mitral tricuspid regurgitation and EF approximated at 30-35%. Cardiology following and patient scheduled for cardiac cath today. Troponins were also done and positive at 0.294 been elevating at 0.762 and last night was 2.580. Patient was continued on telemetry monitoring started on IV heparin and nothing by mouth at midnight for cardiology consult in the a.m. 04/21/2022 Patient is seen in follow-up today cardiac catheterization with PCI stenting to the proximal circumflex as well as second obtuse marginal branch. Patient is continued on telemetry monitoring and will continue overnight as cardiology has made some medication adjustments to maximize medical management. Patient had some oozing to the right radial site although has stopped now. Will closely monitor overnight with possible discharge in 24 hours once cleared by cardiology. Review of systems: Constitutional: No reports of fatigue, fever, or chills Cardiovascular: No reports of chest pain or palpitations Respiratory: No reports of shortness of breath or cough GI: No reports of nausea, vomiting, or diarrhea : No reports of dysuria or retention Neurovascular: No reports of weakness or numbness All medications have been reviewed PHYSICAL EXAMINATION: GENERAL: The patient is alert and oriented x4, Well developed, well nourished. Obese HEENT: Pupils are round and equally reacting to light. EOMI. no scleral icterus. No conjunctival pallor. Normocephalic, atraumatic. No pharyngeal erythema. No thyromegaly. CARDIOVASCULAR: S1 and S2 muffled PULMONARY: diminished breath sounds bilaterally with no wheezing or rhonchi noted. ABDOMEN: soft. Nontender on exam. obese. non-distended, normoactive bowel so unds. No palpable organomegaly. MUSCULOSKELETAL: No joint swelling or deformity. EXTREMITIES: No cyanosis, clubbing, or pedal edema. NEUROLOGICAL: Gross neurological examination did not reveal any focal deficits. SKIN: No rashes. Assessment: Chest pain, NSTEMI post cardiac cath with PCI stenting to the proximal circumflex as well as second obtuse marginal branch Elevated d-dimer with no evidence of PE on CTA possibly secondary to NSTEMI Hypertension Obesity with a BMI of 39.6 GI prophylaxis DVT prophylaxis Full code Plan: Recommend to continue with current medications and management cardiology following. Patient is post cardiac catheterization with PCI stenting to the proximal circumflex as well as second obtuse marginal branch. patient was having some prolonged oozing from the right radial site. Patient is now on brilinta and cardiology maximizing medical management. Adjustments to blood pressure medications made and recommending telemetry monitoring overnight with possible discharge in 24 hours. Prognosis is guarded. The impression and plan of care has been dictated by Marjorie Galan, nurse practitioner as directed. Dr. Riya ARTEAGA I have performed a history and examination and MDM of this patient, discussed the same with the dictator, and agree with the dictator's assessment and plan as written ,documented as a scribe. Based on total visit time, I have performed more than 50% of the visit. Any additional findings or plans will be noted. Objective - Vital Signs Vital signs: Vital Signs Temp 97.8 F 04/21/22 03:13 Pulse 69 04/21/22 03:13 Resp 16 04/21/22 03:13 BP 133/69 04/21/22 03:13 Pulse Ox 92 L 04/21/22 03:13 FiO2 Intake & Output 04/20/22 04/21/22 04/21/22 18:59 06:59 18:59 Intake Total 387.036 Balance 387.036 Intake: IV 210 Intake, IV Titration 59.036 Amount Heparin Sod,Pork in 0.45% 59.036 NaCl 25,000 unit In 0.45 % NaCl 1 250ml.bag @ 7. 349 UNITS/KG/HR 10 mls/hr IV .Q24H [facility] Rx#: [id number] Oral 118 Other: Voiding Method Toilet Toilet # Voids 2 2 - Labs CBC & Chem 7: 04/21/22 08:13 04/21/22 08:13 Labs: Abnormal Lab Results - Last 24 Hours (Table) 04/20/22 04/21/22 04/21/22 Range/Units 05:24 08:13 08:13 Glucose 206 H (74-99) mg/dL Troponin I 2.280 H* (0.000-0.034) ng/mL Triglycerides 154.00 H (0.00-149.00) mg/dL HDL Cholesterol 34.00 L (40.00-60.00) mg/dL
[2022-04-22] MEDS: SPIRONOLACTONE 25 MG TAB PO SCH (08:42)
[2022-04-22] MEDS: METOPROLOL TARTRATE 50 MG TAB PO SCH (08:42)
[2022-04-22] MEDS: TICAGRELOR 90 MG TAB PO SCH (08:42)
[2022-04-22] MEDS: LOSARTAN 50 MG TAB PO SCH (08:43)
[2022-04-22] MEDS: ASPIRIN 81 MG PO SCH (08:43)
[2022-04-22] MEDS ORDERED: FUROSEMIDE 20 MG TAB PO SCH (09:00)
[2022-04-22 11:51] VITALS: BP 139/82; PULSE 65; RESP 18; TEMP 97.9
--- NOTE | 2022-04-22 12:07 | P.PN ---
Subjective Progress Note Date: 04/22/22 HISTORY OF PRESENT ILLNESS: This is a 71-year-old male with a past medical history significant for hypertension. 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 We have been asked to see the patient in consultation for NSTEMI. Patient examined at the bedside. Patient states two days ago he began to have heartburn after he ate dinner. He states he took some Tums with relief. The following day he was feeling better so he went to the basement to move some boxes and began to have chest pain. He presented to the ER for further evaluation. Patient was started on IV heparin. He currently denies chest pain or pressure. He denies SOB. Vital signs are stable. * EKG reveals sinus mechanism with left bundle branch block. No previous EKG for comparison * Chest xray borderline heart size. Chronic bandlike density at the right base, suspected scar. Some patchy atelectasis or developing infiltrate medial left base. * Chest CTA: Negative for PE * Laboratory data: WBC 9.8. Hemoglobin 15.0. Platelet count 177. D-dimer 2.51. Sodium 140. Potassium 3.8. BUN 14. Creatinine 0.72. ProBNP 52. Troponin 0.294. 0.762. 2.580. * Current home cardiac medications include hydrochlorothiazide 25 mg daily and Norvasc 5 mg daily 04/21/2022 Patient examined this morning at the bedside. Patient is s/p cardiac cath with PCI of the proximal circumflex and second obtuse marginal branch. Echo reveals EF 30-35%. Patient denies any chest pain or pressure. Denies SOB. Vital signs are stable. Slight oozing this morning from radial site. 04/22/2022 Patient examined this morning at the bedside. Patient denies chest pain or pressure. She denies chest pain or pressure. Denies SOB. Vital signs are stable. PHYSICAL EXAM: VITAL SIGNS: Reviewed. GENERAL: Well-developed in no acute distress. HEENT: Head is normocephalic. Pupils are equal, round. Sclerae anicteric. Mucous membranes of the mouth are moist. Neck supple. No JVD or thyromegaly LUNGS: Respirations even and unlabored. Lungs essentially clear to auscultation bilaterally. HEART: Regular rate and rhythm. S1 and S2 heard. ABDOMEN: Soft. Nondistended. Nontender. EXTREMITIES: Normal range of motion. No clubbing or cyanosis. Peripheral pulses intact. No lower extremity edema NEUROLOGIC: Awake and alert. Oriented x 3. ASSESSMENT: Non-STEMI, s/p cardiac catheterization with PCI to the proximal circumflex and second obtuse marginal branch Coronary artery disease Ischemic cardiomyopathy Hypertension PLAN: Continue current cardiac medications Patient is stable for discharge home today from a cardiac standpoint Patient to follow up outpatient with Dr. Rodríguez Nurse practitioner note has been reviewed by physician. Signing provider agrees with the documented findings, assessment, and plan of care. Objective - Vital Signs Vital signs: Vital Signs Temp 97.9 F 04/22/22 11:50 Pulse 65 04/22/22 11:50 Resp 18 04/22/22 11:50 BP 139/82 04/22/22 11:50 Pulse Ox 93 L 04/22/22 11:50 FiO2 Intake & Output 04/21/22 04/22/22 04/22/22 18:59 06:59 18:59 Intake Total 360 180 Balance 360 180 Intake: Oral 360 180 Other: Voiding Method Toilet Toilet # Voids 2 2 1 - Labs CBC & Chem 7: 04/21/22 08:13 04/21/22 08:13
[2022-04-22 12:48] LABS: African American GFR (CKD) >90 (>60 ml/min/1.73 sqM); Anion Gap 8 mmol/L; Blood Urea Nitrogen 17 mg/dL (9-20); Calcium 9.2 mg/dL (8.4-10.2); Carbon Dioxide 27 mmol/L (22-30); Chloride 107 mmol/L (98-107); Glucose 117 mg/dL (74-99); Non-African American GFR(CKD) >90 (>60 ml/min/1.73 sqM); Sodium 142 mmol/L (137-145)
--- NOTE | 2022-04-23 15:44 | P.DS ---
Providers Date of admission: 04/19/22 16:54 Expected date of discharge: 04/22/22 Attending physician: John Coopre MD Consults: 04/19/22 16:54 Consult Physician Routine Consulting Provider: [facility] Consult Reason/Comments: chest pain, nstemi Do you want consulting provider notified?: Yes Primary care physician: Slade Khoury Hospital Course: Final diagnosis Chest pain, NSTEMI post cardiac cath with PCI stenting to the proximal circumflex as well as second obtuse marginal branch Elevated d-dimer with no evidence of PE on CTA possibly secondary to NSTEMI Hypertension Obesity with a BMI of 39.6 GI prophylaxis DVT prophylaxis Full code Discharge disposition Patient is being discharged in a stable condition with guarded prognosis to home. Patient will follow-up with Dr. Khoury in the outpatient setting upon discharge. Patient is to continue with current medications and close outpatient follow-up with cardiology as scheduled. Total time taken is greater than 35 minutes. Hospital course This is a 71-year-old male who was recently admitted with NSTEMI underwent cardiac catheterization with 2 stents and started on multiple medications to max imize medical management with cardiology following closely. Patient with a reduced EF as well and will need close outpatient follow-up within the next 1-2 weeks. Patient also encouraged to follow-up with primary care provider on discharge as patient has been started on multiple new medications. Currently no reports of chest pain, shortness of breath, or palpitations. Patient is afebrile. No reports of nausea or vomiting and patient is tolerating diet. Patient will be discharged home today. Patient encouraged to continue with limited activity until follow-up with cardiology and clearance. Guarded prognosis. Physical exam: Gen: This is a 71-year-old male awake, alert and oriented 3, well-developed, well-nourished, obese HEENT: Head is atraumatic, normocephalic. Pupils equal, round. Sclerae is anicteric. NECK: Supple. No JVD. No lymphadenopathy. No thyromegaly. LUNGS: Clear to auscultation. No wheezes or rhonchi. No intercostal retractions. HEART: Regular rate and rhythm. No murmur. ABDOMEN: Soft. Bowel sounds are present. No masses. No tenderness. EXTREMITIES: No pedal edema. No calf tenderness. NEUROLOGICAL: Patient is awake, alert and oriented x3. Cranial nerves 2 through 12 are grossly intact. Please refer to medication reconciliation sheet for a list of medications. The impression and plan of care has been dictated by Marjorie Galan Nurse Pra ctitioner as directed. Dr. Riya MD I have performed a history and examination and MDM of this patient, discussed the same with the dictator, and agree with the dictator's assessment and plan as written ,documented as a scribe. Based on total visit time, I have performed more than 50% of the visit. Patient Condition at Discharge: Stable Plan - Discharge Summary Discharge Rx Participant: No New Discharge Prescriptions: New Spironolactone [Aldactone] 12.5 mg PO DAILY #30 tab Aspirin 81 mg PO DAILY 30 Days #30 tab Atorvastatin [Lipitor] 80 mg PO HS #30 tab Metoprolol Tartrate [Lopressor] 50 mg PO BID #60 tab Nitroglycerin Sl Tabs [Nitrostat] 0.4 mg SUBLINGUAL Q5M PRN #30 tab PRN Reason: Chest Pain Ticagrelor [Brilinta] 90 mg PO BID #60 tab Losartan [Cozaar] 50 mg PO DAILY #30 tab Furosemide [Lasix] 20 mg PO DAILY #30 tab Continue Tamsulosin HCl [Flomax] 0.4 mg PO HS Discontinued hydroCHLOROthiazide [Hydrodiuril] 25 mg PO DAILY amLODIPine [Norvasc] 5 mg PO DAILY Discharge Medication List Tamsulosin HCl [Flomax] 0.4 mg PO HS 04/19/22 [History] Ticagrelor [Brilinta] 90 mg PO BID #60 tab 04/21/22 [Rx] Aspirin 81 mg PO DAILY 30 Days #30 tab 04/22/22 [Rx] Atorvastatin [Lipitor] 80 mg PO HS #30 tab 04/22/22 [Rx] Furosemide [Lasix] 20 mg PO DAILY #30 tab 04/22/22 [Rx] Losartan [Cozaar] 50 mg PO DAILY #30 tab 04/22/22 [Rx] Metoprolol Tartrate [Lopressor] 50 mg PO BID #60 tab 04/22/22 [Rx] Nitroglycerin Sl Tabs [Nitrostat] 0.4 mg SUBLINGUAL Q5M PRN #30 tab 04/22/22 [Rx] Spironolactone [Aldactone] 12.5 mg PO DAILY #30 tab 04/22/22 [Rx] Follow up Appointment(s)/Referral(s): Slade Khoury MD [Primary Care Provider] - 04/28/22 11:00 am Yoon Rodríguez MD [STAFF PHYSICIAN] - 04/28/22 2:30 pm Patient Instructions/Handouts: *Surgery [facility] - After Heart Catheterization - Old Coin Dealer Instructions Activity/Diet/Wound Care/Special Instructions: Activity Limited until follow-up Continue taking all medications as prescribed Follow-up with primary care provider on discharge Follow-up with pool hand on discharge Continue heart healthy diet Discharge Disposition: HOME SELF-CARE
== END 2022-04-22 15:48 | disposition home or self-care (01) | DRG 247 ==
LOC: EC 14:15 → 3SCARD 16:54
PROVIDERS: ADMIT Internal Medicine; ATTEND Internal Medicine
PROC: 027135Z Dilation of Coronary Artery, Two Arteries with Two Drug-eluting Intraluminal Devices, Percutaneous Approach (ICD-10-PCS; principal; 2022-04-20 11:50)
PROC: 4A023N7 Measurement of Cardiac Sampling and Pressure, Left Heart, Percutaneous Approach (ICD-10-PCS; 2022-04-20 11:50)
PROC: B2111ZZ Fluoroscopy of Multiple Coronary Arteries using Low Osmolar Contrast (ICD-10-PCS; 2022-04-20 11:50)
DX: I21.4 Non-ST elevation (NSTEMI) myocardial infarction (principal); I47.1 Supraventricular tachycardia; I10 Essential (primary) hypertension; E66.9 Obesity, unspecified; Z68.39 Body mass index [BMI] 39.0-39.9, adult; I08.3 Combined rheumatic disorders of mitral, aortic and tricuspid valves; I25.5 Ischemic cardiomyopathy; I25.119 Atherosclerotic heart disease of native coronary artery with unspecified angina pectoris; I44.7 Left bundle-branch block, unspecified; I44.0 Atrioventricular block, first degree; R79.89 Other specified abnormal findings of blood chemistry; R91.1 Solitary pulmonary nodule; N40.0 Benign prostatic hyperplasia without lower urinary tract symptoms; Z79.899 Other long term (current) drug therapy
CPT/HCPCS: 36415; 71046; 71275; 80048; 80053; 80061; 83690; 83735; 83880; 84484; 85025; 85379; 85610; 85730; 93005; 93306; 93458; 96365; 96374; 99285

== ENCOUNTER 2022-09-11 16:11 | Emergency (ER) | payer MEDICARE ==
[2022-09-11 16:17] VITALS: TEMP 98
[2022-09-11] MEDS ORDERED: SODIUM CHLORIDE 0.9% 1,000 ML IV STA (16:26)
--- NOTE | 2022-09-11 16:43 | ED ---
General Adult HPI - General Chief complaint: Recheck/Abnormal Lab/Rx Stated complaint: Recheck Source: patient Mode of arrival: ambulatory Limitations: no limitations - History of Present Illness Initial comments: Patient is a 72-year-old male who presents to the emergency department with a chief complaint of abdominal pain. Patient went to the urgent care today due to lower abdominal pain which he describes as a "gassy pain.' He has had this pain for the past 2 days along with intermittent fever. Patient has also felt very nauseous. He denies fever, chills, cold-like symptoms. No chest pain or shortness of breath. Upon questioning regarding that the burning with [place]. No blood in the urine, urinary frequency/urgency, back pain. He denies history of urinary tract infection and kidney stone. At the urgent care patient had negative viral testing and they told him to come to the emergency department for cardiology evaluation given his history of heart attack with stenting. Again patient is adamant he does not have any chest pain or shortness of breath. His abdominal pain is lower. - Related Data Home Medications Medication Instructions Recorded Confirmed Tamsulosin HCl [Flomax] 0.4 mg PO HS 04/19/22 09/11/22 Previous Rx's Medication Instructions Recorded Ticagrelor [Brilinta] 90 mg PO BID #60 tab 04/21/22 Aspirin 81 mg PO DAILY 30 Days #30 tab 04/22/22 Atorvastatin [Lipitor] 80 mg PO HS #30 tab 04/22/22 Furosemide [Lasix] 20 mg PO DAILY #30 tab 04/22/22 Losartan [Cozaar] 50 mg PO DAILY #30 tab 04/22/22 Metoprolol Tartrate [Lopressor] 50 mg PO BID #60 tab 04/22/22 Nitroglycerin Sl Tabs [Nitrostat] 0.4 mg SUBLINGUAL Q5M PRN #30 tab 04/22/22 Spironolactone [Aldactone] 12.5 mg PO DAILY #30 tab 04/22/22 Ciprofloxacin HCl [Cipro] 500 mg PO Q12HR #28 tablet 09/11/22 Metoclopramide [Reglan] 10 mg PO TID PRN #15 tab 09/11/22 Allergies Allergy/AdvReac Type Severity Reaction Status Date / Time No Known Allergies Allergy Verified 09/11/22 17:20 Review of Systems ROS Statement: Those systems with pertinent positive or pertinent negative responses have been documented in the HPI. ROS Other: All systems not noted in ROS Statement are negative. Past Medical History Past Medical History: Atrial Fibrillation, Hypertension History of Any Multi-Drug Resistant Organisms: None Reported Additional Past Surgical History / Comment(s): VARICOSE VEIN STRIPPING Past Psychological History: No Psychological Hx Reported Smoking Status: Never smoker Past Alcohol Use History: None Reported Past Drug Use History: None Reported General Exam Limitations: no limitations General appearance: alert, in no apparent distress Head exam: Present: atraumatic, normocephalic, normal inspection Eye exam: Present: normal appearance, PERRL, EOMI. Absent: scleral icterus, conjunctival injection, periorbital swelling Neck exam: Present: normal inspection. Absent: tenderness, meningismus, lymphadenopathy Respiratory exam: Present: normal lung sounds bilaterally. Absent: respiratory distress, wheezes, rales, rhonchi, stridor Cardiovascular Exam: Present: regular rate, normal rhythm, normal heart sounds. Absent: systolic murmur, diastolic murmur, rubs, gallop, clicks GI/Abdominal exam: Present: soft, normal bowel sounds. Absent: distended, tenderness, guarding, rebound, rigid Neurological exam: Present: alert, oriented X3, CN II-XII intact Psychiatric exam: Present: normal affect, normal mood Course Vital Signs 09/11/22 09/11/22 09/11/22 16:14 19:22 20:35 Temperature 98 F Pulse Rate 79 70 Respiratory 20 18 18 Rate Blood Pressure 108/61 119/65 O2 Sat by Pulse 99 96 Oximetry Medical Decision Making - Medical Decision Making EKG taken at 16:22, interpreted by me sinus rhythm with first degree AV block, left axis deviation Ventricular rate 76, MI interval 258, QRS duration 162, QTc 456 Was pt. sent in by a medical professional or institution (, PA, BROACHING MACHINE SET UP OPERATOR, urgent care, hospital, or alf...) When possible be specific @ -[No] Did you speak to anyone other than the patient for history (EMS, parent, family, police, friend...)? What history was obtained from this source @ -[No] Did you review nursing and triage notes (agree or disagree)? Why? @ -[I reviewed and agree with nursing and triage notes] Were old charts reviewed (outside hosp., previous admission, EMS record, old EKG, old radiological studies, urgent care reports/EKG's, alf records)? Report findings @ -[No old charts were reviewed] Differential Diagnosis (chest pain, altered mental status, abdominal pain women, abdominal pain men, vaginal bleeding, weakness, fever, dyspnea, syncope, headache, dizziness, GI bleed, back pain, seizure, CVA, palpatations, mental health)? @ -Differential Abdominal Pain Men: Appendicitis, cholecystitis, diverticulosis, ischemic bowel, pancreatitis, hepatitis, UTI, gastroenteritis, AAA, incarcerated hernia, bowel obstruction, constipation, inflammatory bowel, hepatitis, peptic ulcer disease, splenic infarction, perforated viscus, testicular torsion, this is not meant to be an all-inclusive list EKG interpreted by me (3pts min.). @ -[As above] X-rays interpreted by me (1pt min.). @ -[None done] CT interpreted by me (1pt min.). @ -Yes, CT is negative for acute process. U/S interpreted by me (1pt. min.). @ -[None done] What testing was considered but not performed or refused? (CT, X-rays, U/S, labs)? Why? @ -[None] What meds were considered but not given or refused? Why? @ -[None] Did you discuss the management of the patient with other professionals (professionals i.e. , PA, BROACHING MACHINE SET UP OPERATOR, lab, RT, psych nurse, oncology social worker, insert cutter, teacher, biosecurity officer, correctional case records supervisor)? Give summary @ -[No] Was smoking cessation discussed for >3mins.? @ -[No] Was critical care preformed (if so, how long)? @ -[No] Were there social determinants of health that impacted care today? How? (Homelessness, low income, unemployed, alcoholism, drug addiction, transportation, low edu. Level, literacy, decrease access to med. care, [facility], rehab)? @ -[No] Was there de-escalation of care discussed even if they declined (Discuss DNR or withdrawal of care, Hospice)? DNR status @ -[No] What co-morbidities impacted this encounter? (DM, HTN, Smoking, COPD, CAD, Cancer, CVA, ARF, Chemo, Hep., AIDS, mental health diagnosis, sleep apnea, m orbid obesity)? @ -[None] Was patient admitted / discharged? Hospital course, mention meds given and route, prescriptions, significant lab abnormalities, going to OR and other pertinent info. @ -Patient presenting for evaluation of abdominal pain, nausea, fever. Afebrile on arrival. The abdomen is soft and nontender. Laboratory studies obtained. There is leukocytosis of 23.8. Urinalysis reveals significant infection. CT of the abdomen and pelvis is negative for acute process. There is prostate enlargement. There is no fat stranding of the kidney no hydronephrosis. Patient given IV Levaquin and large fluid bolus. Pain and nausea controlled. Results discussed with patient and . Patient will be discharged with ciprofloxacin for urinary tract infection I suspect could be secondary to prostatitis. Patient does not have fever or vomiting he is in stable medical condition for discharge. Will follow-up with primary care provider for repeat urinalysis and further management. Return parameters discussed. Undiagnosed new problem with uncertain prognosis? @ -[No] Drug Therapy requiring intensive monitoring for toxicity (Heparin, Nitro, Insulin, Cardizem)? @ -[No] Were any procedures done? @ -[No] Diagnosis/symptom? @ -UTI Acute, or Chronic, or Acute on Chronic? @ -acute Uncomplicated (without systemic symptoms) or Complicated (systemic symptoms)? @ -complicated Side effects of treatment? @ -[No] Exacerbation, Progression, or Severe Exacerbation? @ -[No] Poses a threat to life or bodily function? How? (Chest pain, [place], [place], pneumonia, PE, COPD, DKA, ARF, appy, cholecystitis, CVA, Diverticulitis, Homicidal, Suicidal, threat to staff... and all critical care pts) @ -[No] Dr. Manzano is my attending - Lab Data Result diagrams: 09/11/22 17:06 09/11/22 17:06 Lab Results 09/11/22 09/11/22 09/11/22 Range/Units 17: 17:06 17:06 WBC 23.8 H (3.8-10.6) k/uL RBC 4.41 (4.30-5.90) m/uL Hgb 14.1 (13.0-17.5) gm/dL Hct 41.3 (39.0-53.0) % MCV 93.5 (80.0-100.0) fL MCH 32.0 (25.0-35.0) pg MCHC 34.3 (31.0-37.0) g/dL RDW 13.1 (11.5-15.5) % Plt Count 149 L (150-450) k/uL MPV 9.5 Neutrophils % 87 % Lymphocytes % 6 % Monocytes % 6 % Eosinophils % 1 % Basophils % 0 % Neutrophils # 20.6 H (1.3-7.7) k/uL Lymphocytes # 1.4 (1.0-4.8) k/uL Monocytes # 1.3 H (0-1.0) k/uL Eosinophils # 0.2 (0-0.7) k/uL Basophils # 0.1 (0-0.2) k/uL Sodium (137-145) mmol/L Potassium (3.5-5.1) mmol/L Chloride (98-107) mmol/L Carbon Dioxide (22-30) mmol/L Anion Gap mmol/L BUN (9-20) mg/dL Creatinine (0.66-1.25) mg/dL Est GFR (CKD-EPI)AfAm (>60 ml/min/1.73 sqM) Est GFR (CKD-EPI)NonAf (>60 ml/min/1.73 sqM) Glucose (74-99) mg/dL Plasma Lactic Acid Niranjan (0.7-2.0) mmol/L Calcium (8.4-10.2) mg/dL Total Bilirubin (0.2-1.3) mg/dL AST (17-59) U/L ALT (4-49) U/L Alkaline Phosphatase (38-126) U/L Total Protein (6.3-8.2) g/dL Albumin (3.5-5.0) g/dL Lipase (23-300) U/L Urine Color Yellow Urine Appearance Cloudy (Clear) Urine pH 5.5 (5.0-8.0) Ur Specific [place] 1.028 (1.001-1.035) Urine Protein 1+ H (Negative) Urine Glucose (UA) Negative (Negative) Urine Ketones Trace H (Negative) Urine Blood Small H (Negative) Urine Nitrite Positive (Negative) Urine Bilirubin Negative (Negative) Urine Urobilinogen 2.0 (<2.0) mg/dL Ur Leukocyte Esterase Large H (Negative) Urine RBC 15 H (0-5) /hpf Urine WBC >182 H (0-5) /hpf Urine WBC Clumps Occasional H (None) /hpf Ur Squamous Epith Cells 1 (0-4) /hpf Urine Bacteria Rare H (None) /hpf Urine Mucus Many H (None) /hpf Influenza Type A (PCR) Not Detected (Not Detectd) Influenza Type B (PCR) Not Detected (Not Detectd) RSV (PCR) Not Detected (Not Detectd) SARS-CoV-2 (PCR) Not Detected (Not Detectd) 09/11/22 09/11/22 Range/Units 17:06 17:06 WBC (3.8-10.6) k/uL RBC (4.30-5.90) m/uL Hgb (13.0-17.5) gm/dL Hct (39.0-53.0) % MCV (80.0-100.0) fL MCH (25.0-35.0) pg MCHC (31.0-37.0) g/dL RDW (11.5-15.5) % Plt Count (150-450) k/uL MPV Neutrophils % % Lymphocytes % % Monocytes % % Eosinophils % % Basophils % % Neutrophils # (1.3-7.7) k/uL Lymphocytes # (1.0-4.8) k/uL Monocytes # (0-1.0) k/uL Eosinophils # (0-0.7) k/uL Basophils # (0-0.2) k/uL Sodium 137 (137-145) mmol/L Potassium 4.0 (3.5-5.1) mmol/L Chloride 104 (98-107) mmol/L Carbon Dioxide 27 (22-30) mmol/L Anion Gap 6 mmol/L BUN 21 H (9-20) mg/dL Creatinine 0.82 (0.66-1.25) mg/dL Est GFR (CKD-EPI)AfAm >90 (>60 ml/min/1.73 sqM) Est GFR (CKD-EPI)NonAf 90 (>60 ml/min/1.73 sqM) Glucose 120 H (74-99) mg/dL Plasma Lactic Acid Niranjan 1.3 (0.7-2.0) mmol/L Calcium 9.0 (8.4-10.2) mg/dL Total Bilirubin 2.3 H (0.2-1.3) mg/dL AST 22 (17-59) U/L ALT 43 (4-49) U/L Alkaline Phosphatase 56 (38-126) U/L Total Protein 6.1 L (6.3-8.2) g/dL Albumin 3.5 (3.5-5.0) g/dL Lipase 21 L (23-300) U/L Urine Color Urine Appearance (Clear) Urine pH (5.0-8.0) Ur Specific [place] (1.001-1.035) Urine Protein (Negative) Urine Glucose (UA) (Negative) Urine Ketones (Negative) Urine Blood (Negative) Urine Nitrite (Negative) Urine Bilirubin (Negative) Urine Urobilinogen (<2.0) mg/dL Ur Leukocyte Esterase (Negative) Urine RBC (0-5) /hpf Urine WBC (0-5) /hpf Urine WBC Clumps (None) /hpf Ur Squamous Epith Cells (0-4) /hpf Urine Bacteria (None) /hpf Urine Mucus (None) /hpf Influenza Type A (PCR) (Not Detectd) Influenza Type B (PCR) (Not Detectd) RSV (PCR) (Not Detectd) SARS-CoV-2 (PCR) (Not Detectd) Disposition Clinical Impression: UTI (urinary tract infection) Disposition: HOME SELF-CARE Condition: Good Instructions (If sedation given, give patient instructions): Prostatitis (ED), Urinary Tract Infection in Men (ED) Additional Instructions: Take medication as directed. Follow-up with primary care provider in one to 2 days. Return to the emergency department if you experience new, concerning, or worsening symptoms. Prescriptions: Ciprofloxacin HCl [Cipro] 500 mg PO Q12HR #28 tablet Metoclopramide [Reglan] 10 mg PO TID PRN #15 tab PRN Reason: Nausea Is patient prescribed a controlled substance at d/c from ED?: No Referrals: Slade Khoury MD [Primary Care Provider] - 1-2 days Time of Disposition: 19:56
[2022-09-11] MEDS ORDERED: ONDANSETRON 4 MG/2 ML VIAL IVP STA (16:51)
[2022-09-11] MEDS ORDERED: DICYCLOMINE 10 MG CAP PO STA (16:51)
[2022-09-11] MEDS ORDERED: SIMETHICONE 80 MG CHEWABLE PO STA (16:51)
--- NOTE | 2022-09-11 17:07 | CT ---
EXAMINATION TYPE: CT abdomen pelvis wo con DATE OF EXAM: 09/11/2022 COMPARISON: None HISTORY: Abdominal, gas pain CT DLP: 1264.4 mGycm Examination of the solid and hollow viscera is limited given the lack of contrast. FINDINGS: LUNG BASES: No evidence for nodule. No evidence for infiltrate. LIVER/GB: The gallbladder is unremarkable. No space-occupying hepatic lesion. PANCREAS: No pancreatic mass identified. No inflammatory process seen. SPLEEN: No evidence for splenomegaly. No intrasplenic lesions seen. ADRENALS: 1 cm right adrenal adenoma. No evidence for thickening. KIDNEYS: No evidence for renal mass. 5 mm nonobstructing lower pole left kidney. No hydronephrosis. BOWEL: Appendix has a normal appearance. No evidence of bowel obstruction. No inflammatory process. S cattered sigmoid diverticulosis without diverticulitis. Lymph nodes: No evidence for adenopathy greater than 1 cm. Abdominal aorta: Atheromatous changes seen. No evidence for aneurysm. Genital organs: Prostate gland enlargement. Other: No significant abnormality. IMPRESSION: 1. No acute intra-abdominal or intrapelvic process. Incidental findings as noted above.
[2022-09-11 17:25] LABS: Basophils # (A) 0.1 k/uL (0-0.2); Basophils % (A) 0 %; Eosinophils # (A) 0.2 k/uL (0-0.7); Eosinophils % (A) 1 %; HCT 41.3 % (39.0-53.0); HGB 14.1 gm/dL (13.0-17.5); Lymphocytes # (A) 1.4 k/uL (1.0-4.8); Lymphocytes % (A) 6 %; MCHC 34.3 g/dL (31.0-37.0); MCV 93.5 fL (80.0-100.0); Mean Platelet Volume 9.5; Monocytes # (A) 1.3 k/uL (0-1.0); Monocytes % (A) 6 %; Neutrophils # (A) 20.6 k/uL (1.3-7.7); Neutrophils % (A) 87 %; Platelet Count 149 k/uL (150-450); RBC 4.41 m/uL (4.30-5.90); RDW 13.1 % (11.5-15.5); WBC 23.8 k/uL (3.8-10.6)
[2022-09-11 17:36] LABS: ALT 43 U/L (4-49); AST 22 U/L (17-59); African American GFR (CKD) >90 (>60 ml/min/1.73 sqM); Albumin 3.5 g/dL (3.5-5.0); Alkaline Phosphatase 56 U/L (38-126); Anion Gap 6 mmol/L; Blood Urea Nitrogen 21 mg/dL (9-20); Carbon Dioxide 27 mmol/L (22-30); Chloride 104 mmol/L (98-107); Glucose 120 mg/dL (74-99); Lipase 21 U/L (23-300); Non-African American GFR(CKD) 90 (>60 ml/min/1.73 sqM); Sodium 137 mmol/L (137-145); Total Bilirubin 2.3 mg/dL (0.2-1.3); Total Protein 6.1 g/dL (6.3-8.2)
[2022-09-11 18:42] LABS: Appearance,Urine Cloudy (Clear); Bacteria,Urine Rare /hpf; Bilirubin,Urine Negative (Negative); Blood,Urine Small (Negative); Color,Urine Yellow; Glucose,Urine (UA) Negative (Negative); Ketones,Urine Trace (Negative); Leukocyte Esterase,Urine Large (Negative); Mucus,Urine Many /hpf; Nitrite,Urine Positive (Negative); PH, Urine 5.5 (5.0-8.0); Protein,Urine 1+ (Negative); RBC,Urine 15 /hpf (0-5); Specific Gravity,Urine 1.028 (1.001-1.035); Squamous Epithelial Cell,Urine 1 /hpf (0-4); WBC,Urine >182 /hpf (0-5)
[2022-09-11] MEDS ORDERED: cefTRIAXone IN SWFI 1,000 MG/10 ML SYRINGE IVP STA (18:56)
[2022-09-11] MEDS ORDERED: LEVOFLOXACIN 500MG-D5W PMX 500 MG in DEXTROSE/WATER 1 100ML.BAG IVPB STA (18:57)
[2022-09-11 19:26] VITALS: BP 119/65; PULSE 70; RESP 18
== END 2022-09-11 20:39 | disposition home or self-care (01) ==
LOC: EC 16:11
DX: N39.0 Urinary tract infection, site not specified (principal); I10 Essential (primary) hypertension; I25.2 Old myocardial infarction; Z20.822 Contact with and (suspected) exposure to COVID-19; Z95.5 Presence of coronary angioplasty implant and graft; Z79.899 Other long term (current) drug therapy
CPT/HCPCS: 36415; 80053; 83605; 83690; 85025; 81001; 87086; 87636; 74176; 99284; 96365; 96375; 96361 ×2; J2405; J1956; 93005

== ENCOUNTER → 2022-11-04 | Outpatient (CLI) | payer MEDICARE ==
[2022-11-05 02:12] LABS: African American GFR (CKD) 104.9 (60.0-200.0); Anion Gap 7.5 mmol/L (10.00-18.00); BUN/Creat Ratio 26.38 Ratio (12.00-20.00); Blood Urea Nitrogen 21.1 mg/dL (9.0-27.0); Calcium 9.4 mg/dL (8.7-10.3); Carbon Dioxide 27.5 mmol/L (20.0-27.5); Non-African American GFR(CKD) 90.5 (60.0-200.0); Potassium 4.7 mmol/L (3.5-5.5)
== END | disposition home or self-care (01) ==
LOC: LABWHC1 12:30
PROVIDERS: ATTEND Internal Medicine Interventional Cardiology
DX: I25.10 Atherosclerotic heart disease of native coronary artery without angina pectoris (principal)
CPT/HCPCS: 36415; 80048